=== PATIENT | female | born 1985 | race Caucasian/White ===

== ENCOUNTER 2017-12-12 05:39 | Emergency (ER) | payer OTHER ==
[2017-12-12 06:33] LABS: URINE BLOOD (Dip) POC Trace-lysed (NEGATIVE); URINE GLUCOSE (Dip) POC Negative (NEGATIVE); URINE KETONES (Dip) POC Negative (NEGATIVE); URINE LEUKOCYTE EST (Dip) POC Negative (NEGATIVE); URINE NITRITE (Dip) POC Negative (NEGATIVE); URINE TOTAL PROTEIN POC Negative (NEGATIVE)
[2017-12-12 06:33] LABS: URINE PH (Dip) POC 5.5 (5.0-8.5)
[2017-12-12 06:42] LABS: ADD MAN DIFF? NO
[2017-12-12] MEDS: ACETAMINOPHEN 325 MG TAB PO (06:51)
[2017-12-12 06:52] LABS: WHITE BLOOD COUNT 7.6 10^3/ul (4.8-10.8)
[2017-12-12 06:52] LABS: BASOPHILS % 0.4 % (0.0-2.0); EOSINOPHILS # 0.1 10^3/ul (0.0-0.5); EOSINOPHILS % 1.3 % (0.0-7.0); HEMATOCRIT 35.5 % (37.0-47.0); HEMOGLOBIN 11.7 g/dl (12.0-16.0); LYMPHOCYTES % 26.1 % (15.0-51.0); MEAN CORPUSCULAR HEMOGLOBIN 27.5 pg (29.0-33.0); MEAN CORPUSCULAR VOLUME 83.3 fl (82.0-101.0); MONOCYTE # 0.5 10^3/ul (0.3-0.9); MONOCYTES % 6.1 % (0.0-11.0); NEUTROPHILS % 65.8 % (39.0-77.0); PLATELET COUNT 272 10^3/UL (140-415); RED BLOOD COUNT 4.26 10^6/ul (4.20-5.40); RED CELL DISTRIBUTION WIDTH 12.3 % (11.5-14.5)
[2017-12-12 07:17] LABS: ALANINE AMINOTRANSFERASE 18 IU/L (13-69); ALBUMIN 3.9 g/dl (3.3-4.9); ALBUMIN/GLOBULIN RATIO 1.08; ALKALINE PHOSPHATASE 59 IU/L (42-121); ANION GAP 18 (8-16); ASPARTATE AMINO TRANSFERASE 22 IU/L (15-46); BILIRUBIN,INDIRECT 0.2 mg/dl (0-1.1); BILIRUBIN,TOTAL 0.2 mg/dl (0.2-1.3); BLOOD UREA NITROGEN 11 mg/dl (7-20); CALCIUM 8.8 mg/dl (8.4-10.2); CARBON DIOXIDE 28 mmol/L (21-31); CHLORIDE 104 mmol/L (97-110); CREATININE 0.61 mg/dl (0.44-1.00); GLUCOSE 97 mg/dl (70-220); LIPASE 30 U/L (23-300); SODIUM 146 mmol/L (135-144); TOTAL PROTEIN 7.5 g/dl (6.1-8.1)
== END 2017-12-12 07:52 | disposition home or self-care (01) ==
LOC: FTE 05:39
DX: R10.32 Left lower quadrant pain (principal)
CPT/HCPCS: 36415; 74176; 80053; 81003; 81025; 83690; 85025; 99284-25